=== PATIENT | female | born 2000 | race Caucasian/White ===

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

== ENCOUNTER 2021-06-19 10:36 | Emergency (ER) | payer MEDICARE, OTHER ==
[~2021-06-19] VITALS: Ht 165.1 cm; Wt 59.0 kg
[2021-06-19] MEDS ORDERED: Clindamycin INJ 600 MG 600 MG in SODIUM CHLORIDE 0.9% 50ML 50 ML IV ONE (11:00)
[2021-06-19] MEDS ORDERED: HYDROCODONE/APAP 10MG-325MG TAB PO ONE (11:00)
[2021-06-19] MEDS ORDERED: SODIUM CHLORIDE 0.9% IM ONE (11:15)
[2021-06-19] MEDS ORDERED: CLINDAMYCIN IM ONE (11:15)
[2021-06-19] MEDS ORDERED: HYDROCODON-ACE1 EA11 PO (11:21)
[2021-06-19] MEDS ORDERED: CLEOCIN HCL300 MG PO (11:21)
== END 2021-06-19 11:46 | disposition home or self-care (01) ==
LOC: ER 10:46
DX: K04.7 Periapical abscess without sinus (principal); R60.9 Edema, unspecified; F17.290 Nicotine dependence, other tobacco product, uncomplicated
CPT/HCPCS: 99283

== ENCOUNTER 2021-08-12 05:17 | Emergency (ER) | payer MEDICARE, OTHER ==
[~2021-08-12] VITALS: Ht 165.1 cm; Wt 61.2 kg
[~2021-08-12 05:17] MED LIST: CLEOCIN HCL300 MG PO; HYDROCODON-ACE1 EA11 PO
== END 2021-08-12 06:58 | disposition home or self-care (01) ==
LOC: ER 05:20
DX: S60.221A Contusion of right hand, initial encounter (principal); W18.39XA Other fall on same level, initial encounter; Y92.89 Other specified places as the place of occurrence of the external cause
CPT/HCPCS: 99283

== ENCOUNTER 2022-04-17 06:56 | Emergency (ER) | payer MEDICARE, OTHER ==
[~2022-04-17] VITALS: Ht 165.1 cm; Wt 61.2 kg
[2022-04-17] MEDS ORDERED: ULTRAM 50MG50 MG PO (08:21)
[2022-04-17 08:40] VITALS: BP 119/78
== END 2022-04-17 08:50 | disposition home or self-care (01) ==
LOC: ER 06:59
DX: S62.330A Displaced fracture of neck of second metacarpal bone, right hand, initial encounter for closed fracture (principal); W01.0XXA Fall on same level from slipping, tripping and stumbling without subsequent striking against object, initial encounter; Y93.01 Activity, walking, marching and hiking; Y92.89 Other specified places as the place of occurrence of the external cause; F41.9 Anxiety disorder, unspecified; F17.210 Nicotine dependence, cigarettes, uncomplicated
CPT/HCPCS: 99283

== ENCOUNTER 2022-06-19 06:36 | Emergency (ER) | payer SELFPAY ==
[~2022-06-19] VITALS: Ht 165.1 cm; Wt 61.2 kg
[~2022-06-19 06:36] MED LIST changes: +ULTRAM 50MG50 MG PO
[2022-06-19 07:07] LABS: BASOPHILS # (AUTO) 0.1 (0.0-0.1); BASOPHILS % 0.9 % (0.0-1.0); EOSINOPHILS # (AUTO) 0.1 (0.0-0.4); EOSINOPHILS % 1.1 % (0.0-6.0); HEMATOCRIT 38.8 % (34.2-44.1); LYMPHOCYTES # (AUTO) 2.8 (1.0-3.2); LYMPHOCYTES % 42.5 % (18.0-39.1); MEAN CORPUSCULAR HEMOGLOBIN 30.7 pg (28-32); MEAN CORPUSCULAR HGB CONC 33.5 g/dL (31-35); MEAN CORPUSCULAR VOLUME 91.5 fL (81-99); MONOCYTES # (AUTO) 0.7 (0.2-0.8); MONOCYTES % 10.6 % (4.4-11.3); NEUTROPHILS # (AUTO) 2.9 (2.1-6.9); NEUTROPHILS % 44.7 % (38.7-80.0); PLATELET COUNT 214 x10e3/uL (140-360); RED BLOOD COUNT 4.24 x10e6/uL (3.6-5.1); RED CELL DISTRIBUTION WIDTH 12.8 % (11.7-14.4)
== END 2022-06-19 07:50 | disposition home or self-care (01) ==
LOC: ER 06:38
DX: K62.5 Hemorrhage of anus and rectum (principal)
CPT/HCPCS: 36415; 84702; 85025; 99283